=== PATIENT | female | born 1970 | race Caucasian/White ===

== ENCOUNTER 2018-09-11 06:42 | Emergency (ER) | payer OTHER ==
[2018-09-11] MEDS ORDERED: ONDANSETRON HCL INJ/PF 4 MG/2 ML SDV IV ONE (08:30)
[2018-09-11] MEDS ORDERED: NORMAL SALINE 1000 ML 1,000 ML IV ONE (08:30)
--- NOTE | 2018-09-11 08:31 | ER Document Report ---
ED General - General Chief Complaint: Vomiting/Diarrhea Stated Complaint: DIARRHEA Time Seen by Provider: 09/11/18 07:33 Notes: Patient is a 48-year-old female who presents to the emergency department with a chief complaint of nausea, vomiting, and diarrhea. She states that her symptoms started 3 weeks ago. Her symptoms have been on and off. She states that she has been to her parents house and has had the symptoms every time she leaves. She does not have any pain, but admits to some cramping in her mid abdomen along her umbilicus. She denies any fever. She has a history of a cholecystectomy. Her past medical history includes hypertension and hypothyroidism. TRAVEL OUTSIDE OF THE [place] IN LAST 30 DAYS: No Past Medical History - Social History Smoking Status: Never Smoker Family History: Reviewed & Not Pertinent Patient has suicidal ideation: No Patient has homicidal ideation: No - Past Medical History Cardiac Medical History: Reports: Hx Hypercholesterolemia, Hx Hypertension Renal/ Medical History: Denies: Hx Peritoneal Dialysis Review of Systems - Review of Systems Notes: REVIEW OF SYSTEMS: CONSTITUTIONAL : Denies recent illness. Denies recent unintentional weight loss. Denies fever, chills, or sweats. EENT: Denies eye, ear, throat, or mouth pain, discharge, or symptoms. Denies nasal or sinus congestion. CARDIOVASCULAR: See HPI RESPIRATORY: Denies shortness of breath, cough, congestion, difficulty breathi ng, or wheezing. GASTROINTESTINAL: See HPI GENITOURINARY: Denies difficulty urinating, burning, blood in urine, urgency or frequency. MUSCULOSKELETAL: Denies neck and back pain. Denies joint pain or swelling. SKIN: Denies rash, itchiness, or lesions HEMATOLOGIC : Denies easy bruising or bleeding. LYMPHATIC: Denies swollen, painful, enlarged glands. NEUROLOGICAL: Denies no numbness or tingling denies weakness. Denies headache. Denies altered mental status. Denies alteration in speech. PSYCHIATRIC: Denies stress, anxiety, alteration in sleep patterns, or depression. All other systems reviewed and negative. Physical Exam - Vital signs Vitals: Temp Pulse Resp BP Pulse Ox 97.4 F 78 16 116/76 96 09/11/18 07:01 09/11/18 07:01 09/11/18 07:01 09/11/18 07:01 09/11/18 07:01 - Notes Notes: PHYSICAL EXAMINATION: GENERAL: Appears well, healthy, well-nourished, no acute distress. HEAD: Normocephalic, atraumatic. EYES: PERRL, conjunctiva normal, all extraocular movements intact, sclera nonicteric ENT: Moist mucous membranes. NECK: Supple, no noticeable swelling, redness, rash. Normal range of motion. LUNGS: Equal breath sounds bilaterally and clear to auscultation. No wheezes rales or rhonchi. CARDIOVASCULAR: S1-S2, regular rate, regular rhythm. Radial pulses 2+, normal. ABDOMEN: Normoactive bowel sounds. Soft, tender mid abdomen near umbilicus, no guarding, no rebound tenderness, and no masses palpated. EXTREMITIES: Normal strength and range of motion, no pitting or edema. No cyanosis. NEUROLOGICAL: Moves all extremities upon command. Strength 5/5 in all extremities. PSYCH: Normal mood, normal affect. SKIN: Warm, dry. No rash, lesions, ulcerations noted. Normal skin turgor. Course - Re-evaluation Re-evalutation: 09/11/18 10:36 Patient states she feels better after receiving the morphine. She has moderate leukocytes in her urine. She is complaining of abdominal pain, she will be given Keflex for her urinary tract infection. Her CBC and chemistries are unremarkable at this time. I do not suspect she has any life-threatening etiology at this time. Verbal discharge instructions were given to the patient. They verbalized understanding. They are stable for discharge. - Vital Signs Vital signs: Temp Pulse Resp BP Pulse Ox 98.1 F 78 15 148/67 H 99 09/11/18 10:58 09/11/18 07:01 09/11/18 10:04 09/11/18 10:04 09/11/18 10:04 - Laboratory Result Diagrams: 09/11/18 07:36 09/11/18 07:36 Laboratory results interpreted by me: 09/11/18 09/11/18 09/11/18 07:36 07:36 08:18 Eosinophils % 6.3 H Chloride 109 H Alkaline Phosphatase 145 H Ur Leukocyte Esterase MODERATE H - EKG Interpretation by Me Additional EKG results interpreted by me: 09/11/18 08:00 Sinus rhythm. Rate 73. WI 168; QRS 98; QT 384; QTC 424. No ST elevation or depression. Discharge - Discharge Clinical Impression: Urinary tract infection Qualifiers: Urinary tract infection type: acute cystitis Hematuria presence: without hematuria Qualified Code(s): N30.00 - Acute cystitis without hematuria Diarrhea Qualifiers: Diarrhea type: unspecified type Qualified Code(s): R19.7 - Diarrhea, unspecified Nausea and vomiting Qualifiers: Vomiting type: unspecified Vomiting Intractability: non-intractable Qualified Code(s): R11.2 - Nausea with vomiting, unspecified Condition: Stable Disposition: HOME, SELF-CARE Instructions: Cephalexin ([facility]) Additional Instructions: Your urine shows findings consistent with a urinary tract infection. Please take all the antibiotics as directed even if your symptoms have improved. Please follow-up with your primary care physician as needed. You have been given Zofran, medication for nausea. Please take this every 6 hours as needed for your nausea. Make sure you stay well-hydrated. Return to emergency room if you develop fever >101F, persistent vomiting, become lethargic, have severe pain in your sides, or any other symptoms that are concerning to you. Prescriptions: Cephalexin [Keflex] 500 mg PO BID #14 capsule
[2018-09-11 09:01] LABS: ABSOLUTE EOSINOPHILS # (AUTO) 0.5 10^3/uL (0.0-0.6); ABSOLUTE LYMPHOCYTES (AUTO) 1.4 10^3/uL (0.5-4.7); ABSOLUTE MONOCYTES (AUTO) 0.4 10^3/uL (0.1-1.4); ABSOLUTE NEUT (AUTO) 6.2 10^3/uL (1.7-8.2); BASOPHILS % (AUTO) 0.4 % (0-2); EOSINOPHILS % (AUTO) 6.3 % (0-6); HEMATOCRIT 44.7 % (36.0-47.0); LYMPHOCYTES % (AUTO) 15.7 % (13-45); MEAN CORPUSCULAR HEMOGLOBIN 31.2 pg (27.0-33.4); MEAN CORPUSCULAR HGB CONC 33.6 g/dL (32.0-36.0); MEAN CORPUSCULAR VOLUME 93 fl (80-97); MONOCYTES % (AUTO) 5.2 % (3-13); PLATELET COUNT 307 10^3/uL (150-450); RED BLOOD COUNT 4.82 10^6/uL (3.72-5.28); RED CELL DISTRIBUTION WIDTH 13.2 % (11.5-14.0); SEGMENTED NEUTROPHILS % (AUTO) 72.4 % (42-78); TOTAL CELLS COUNTED % (AUTO) 100 %; WHITE BLOOD COUNT 8.6 10^3/uL (4.0-10.5)
[2018-09-11 09:09] LABS: ALANINE AMINOTRANSFERASE 50 U/L (9-52); ALBUMIN 4.7 g/dL (3.5-5.0); ALKALINE PHOSPHATASE 145 U/L (38-126); ANION GAP 10 (5-19); ASPARTATE AMINO TRANSFERASE 35 U/L (14-36); BILIRUBIN,DIRECT 0.2 mg/dL (0.0-0.4); BILIRUBIN,TOTAL 0.5 mg/dL (0.2-1.3); BLOOD UREA NITROGEN 15 mg/dL (7-20); CALCIUM 9.7 mg/dL (8.4-10.2); CARBON DIOXIDE 22 mmol/L (22-30); CHLORIDE 109 mmol/L (98-107); GLUCOSE 101 mg/dL (75-110); LIPASE 240.1 U/L (23-300); POTASSIUM 4.4 mmol/L (3.6-5.0); SODIUM 141.2 mmol/L (137-145); TOTAL PROTEIN 7.8 g/dL (6.3-8.2)
[2018-09-11 09:39] LABS: APPEARANCE,URINE SLIGHTLY-CLOUDY; BILIRUBIN,URINE NEGATIVE (NEGATIVE); COLOR,URINE YELLOW; GLUCOSE, URINE NEGATIVE (NEGATIVE); KETONES,URINE NEGATIVE (NEGATIVE); LEUKOCYTE ESTERASE,URINE MODERATE (NEGATIVE); NITRITE,URINE NEGATIVE (NEGATIVE); PROTEIN,URINE NEGATIVE (NEGATIVE); UROBILINOGEN,URINE NEGATIVE mg/dL (<2.0)
[2018-09-11] MEDS ORDERED: MORPHINE SULFATE 10 MG/ML INJ IV ONE (09:52)
[2018-09-11 10:08] VITALS: BP 148/67
[2018-09-11] MEDS ORDERED: ONDANSETRON ODT 4 MG TAB (6 TAB/ER DISP) PO PRN (10:35)
--- NOTE | 2018-09-11 18:32 | EKG REPORT ---
SEVERITY:- ABNORMAL ECG - SINUS RHYTHM PROBABLE INFERIOR INFARCT, OLD : Confirmed by: Sergio Madison 11-Sep-2018 18:31:53
== END 2018-09-11 10:59 | disposition home or self-care (01) ==
LOC: ER 06:42
DX: N30.00 Acute cystitis without hematuria (principal); R11.2 Nausea with vomiting, unspecified; R19.7 Diarrhea, unspecified; R10.33 Periumbilical pain; Z90.49 Acquired absence of other specified parts of digestive tract; I10 Essential (primary) hypertension
CPT/HCPCS: 93005; 99284; 96361; 96374; 96375; 36415; 87086; 83690; 85025; 81025; 80053; 81001; 84484; 93010; J2270; J2405; J7030

== ENCOUNTER 2019-12-01 09:07 | Emergency (ER) | payer OTHER ==
--- NOTE | 2019-12-01 09:31 | ER Document Report ---
ED General - General Chief Complaint: Arm Pain Stated Complaint: LEFT ARM PAIN Time Seen by Provider: 12/01/19 09:30 Primary Care Provider: SHANTI FRANCO MD [Primary Care Provider] - Follow up tomorrow LAURYN GRIJALVA MD [ACTIVE PROVISIONAL STAFF] - Follow up in 3-5 days TRAVEL OUTSIDE OF THE [place] IN LAST 30 DAYS: No - HPI Notes: 49-year-old female history of hypothyroidism, hypertension, anxiety, GERD, IBS, cystitis, intermittent angina over the last several years presents to the emergency room by private car by the recommendation of her primary care provider for an abnormal EKG that was done in the office yesterday for patient stating that she has had intermittent chest pain over the last week, her primary care provider told her that her QT segment "seemed a little off" but due to her significant family history of heart disease, she was advised to go to the emergency room for further evaluation this morning when her PCP re-evaluated her ekg. States her last stress test/echocardiogram was in 2015, which she states were normal. Reports her father did have open heart surgery and a few heart attacks in the past, he is still living. mother has had angioplasty at age 37 due to blocked carotids. She reports a strong family hx of cardiac disease. Patient is a non-smoker that has been exposed to smoke secondhand as a child. Patient states that she has substernal chest pressure that comes and goes and radiates to the back of her left arm intermittently as well as having intermittent left jaw pain. Patient does not take any baby aspirin. Is not on any anticoagulants. She has been seen by her manager of corporate approximately 2 to 3 years ago when she had a similar episode of chest pain. Patient does not have any active chest pain at this time. Denies fevers, chills,palpitations, shortness of breath, dyspnea, nausea, vomiting, diarrhea, abdominal pain, hematuria,blurred vision, double vision, loss of vision, speech changes, LH, dizziness, syncope, headaches, wheezing, ST, URI, neck pain, weakness, bowel or bladder dysfunction, saddle anesthesia, numbness or tingling in bilateral upper or lower extremities equally, muscle paralysis, weakness in bilateral upper or lower extremities equally or rash. Denies IV drug use. - Related Data Allergies/Adverse Reactions: fenofibrate Allergy (Verified 12/01/19 09:23) Sulfa (Sulfonamide Antibiotics) Adverse Reaction (Verified 12/01/19 09:22) Past Medical History - General Information source: Patient - Social History Smoking Status: Never Smoker Family History: Hypertension, Thyroid Disfunction - Past Medical History Cardiac Medical History: Reports: Hx Hypercholesterolemia, Hx Hypertension Renal/ Medical History: Denies: Hx Peritoneal Dialysis Review of Systems - Review of Systems Constitutional: No symptoms reported EENT: No symptoms reported Cardiovascular: See HPI Respiratory: No symptoms reported Gastrointestinal: No symptoms reported Genitourinary: No symptoms reported Female Genitourinary: No symptoms reported Musculoskeletal: No symptoms reported Skin: No symptoms reported Hematologic/Lymphatic: No symptoms reported Neurological/Psychological: No symptoms reported Physical Exam - Vital signs Vitals: Temp Pulse Resp BP Pulse Ox 97.4 F 77 18 107/56 L 96 12/01/19 09:15 12/01/19 09:15 12/01/19 09:15 12/01/19 09:15 12/01/19 09:15 - Notes Notes: PHYSICAL EXAMINATION: reviewed vital signs by RN GENERAL: Well-appearing, well-nourished and in no acute distress. HEAD: Atraumatic, normocephalic. EYES: Pupils equal round and reactive to light, extraocular movements intact, conjunctiva are normal. ENT: Nares patent, oropharynx clear without exudates. Moist mucous membranes. NECK: Normal range of motion, supple without lymphadenopathy LUNGS: Breath sounds clear to auscultation bilaterally and equal. No wheezes rales or rhonchi. HEART: Regular rate and rhythm without murmurs ABDOMEN: Soft, nontender, nondistended abdomen. No guarding, no rebound. No masses appreciated. Female : deferred Musculoskeletal: Normal range of motion, no pitting or edema. No cyanosis. NEUROLOGICAL: Cranial nerves grossly intact. Normal speech, normal gait. Normal sensory, motor exams PSYCH: Normal mood, normal affect. SKIN: Warm, Dry, normal turgor, no rashes or lesions noted. Course - Re-evaluation Re-evalutation: 12/01/19 09:57 Afebrile vital stable no distress. Nurses notes reviewed. EKG negative for [place], no ST segment changes. CBC negative for leukocytosis or anemia, CMP negative for hepatic or renal dysfunction, no electrolyte disturbances. EKG negative for STEMI, no ST segment changes, urinalysis unremarkable. TSH was normal. 2 sets of troponins were negative and since patient has had chest pain for well over 2 weeks this is adequate and has a low heart risk, her heart score is less than Presentation of chest pain in an otherwise well appearing patient. Low clinical suspicion for ACS given clinical history, exam, EKG without ST elevations or depressions, and negative initial troponin. HEART score less than or equal to 3. PE also seems unlikely given clinical history, absence of tachycardia or dyspnea. Patient is PERC criteria negative. CXR without evidence of pneumothorax or pneumonia. No widened mediastinum. Aortic dissection also seems unlikely given history, symmetric pulses, CXR, and vitals. HEART Score: History 0 ECG 0 Age 1 Risk Factors 2 Troponin 0 Total: 3 In the heart score study, is a low score and her risk of myocardial that is 0.9 to 1.7% After performing a Medical Screening Examination, I estimate there is LOW risk for RUPTURED ESOPHAGUS, PNEUMOTHORAX, PULMONARY EMBOLISM, ACUTE CORONARY SYNDROME, OR THORACIC AORTIC DISSECTION, thus I consider the discharge disposition reasonable. I have reevaluated this patient multiple times and no significant life threatening changes are noted. The patient and I have discussed the diagnosis and risks, and we agree with discharging home with close follow- up. We also discussed returning to the Emergency Department immediately if new or worsening symptoms occur. We have discussed the symptoms which are most concerning (e.g., bloody sputum, worsening pain or shortness of breath) that necessitate immediate return. 12/01/19 17:59 - Vital Signs Vital signs: Temp Pulse Resp BP Pulse Ox 97.4 F 77 19 103/59 L 96 12/01/19 09:15 12/01/19 09:15 12/01/19 15:01 12/01/19 15:01 12/01/19 15:01 - Laboratory Result Diagrams: 12/01/19 09:58 12/01/19 09:58 Laboratory results interpreted by me: 12/01/19 12/01/19 09:58 09:58 Eos % (Auto) 8.0 H Carbon Dioxide 21 L BUN 23 H ALT 37 H Discharge - Discharge Clinical Impression: Chest pain of unknown etiology Condition: Stable Disposition: HOME, SELF-CARE Instructions: Angina Episode ([facility]), Chest Pain of Unclear Cause ([facility]), Reflux Disease (GERD) ([facility]) Additional Instructions: You were seen today for chest pain. The exact cause of your pain is unclear. However, based on your cardiac enzyme testing, chest x-ray, and EKG it does not appear that it is from an immediately life-threatening cause at this time. Although your testing here is normal is critical that you follow-up with your primary care physician for continued evaluation of this chest pain and possible stress testing. I recommended you see your physician within the next 24-48 hours to be evaluated for consideration of a stress test. Please return to emergency department immediately if you have worsening of your chest pain, shortness of breath, vomiting, become unable to exert yourself due to pain or difficulty breathing, you pass out, or have any pain that radiates into your arms, jaw, or back. Please also return if you have any additional symptoms that are concerning to you. Return immediately for any new or worsening symptoms. Follow up with primary care provider, call tomorrow to make followup appointment. Referrals: SHANTI FRANCO MD [Primary Care Provider] - Follow up tomorrow LAURYN GRIJALVA MD [ACTIVE PROVISIONAL STAFF] - Follow up in 3-5 days
[2019-12-01] MEDS ORDERED: ASPIRIN 81 MG TABLET, CHEWABLE PO ONE (09:51)
[2019-12-01 10:17] LABS: ABSOLUTE EOSINOPHILS # (AUTO) 0.4 10^3/uL (0.0-0.6); ABSOLUTE LYMPHOCYTES (AUTO) 1.1 10^3/uL (0.5-4.7); ABSOLUTE MONOCYTES (AUTO) 0.5 10^3/uL (0.1-1.4); ABSOLUTE NEUT (AUTO) 3.6 10^3/uL (1.7-8.2); BASOPHILS % (AUTO) 0.5 % (0-2); HEMATOCRIT 39.5 % (36.0-47.0); LYMPHOCYTES % (AUTO) 18.8 % (13-45); MEAN CORPUSCULAR HEMOGLOBIN 33.2 pg (27.0-33.4); MEAN CORPUSCULAR HGB CONC 35.3 g/dL (32.0-36.0); MEAN CORPUSCULAR VOLUME 94 fl (80-97); MONOCYTES % (AUTO) 8.6 % (3-13); PLATELET COUNT 275 10^3/uL (150-450); RED BLOOD COUNT 4.21 10^6/uL (3.72-5.28); RED CELL DISTRIBUTION WIDTH 13.1 % (11.5-14.0); SEGMENTED NEUTROPHILS % (AUTO) 64.1 % (42-78); TOTAL CELLS COUNTED % (AUTO) 100 %; WHITE BLOOD COUNT 5.6 10^3/uL (4.0-10.5)
--- NOTE | 2019-12-01 10:25 | RADIOLOGY REPORT (SQ) ---
EXAM DESCRIPTION: CHEST 2 VIEWS IMAGES COMPLETED DATE/TIME: 12/01/2019 10:04 am REASON FOR STUDY: chest pain COMPARISON: None. EXAM PARAMETERS: NUMBER OF VIEWS: two views TECHNIQUE: Digital Frontal and Lateral radiographic views of the chest acquired. RADIATION DOSE: NA LIMITATIONS: none FINDINGS: LUNGS AND PLEURA: No opacities, masses or pneumothorax. No pleural effusion. MEDIASTINUM AND HILAR STRUCTURES: No masses or contour abnormalities. HEART AND VASCULAR STRUCTURES: Heart normal size. No evidence for failure. BONES: No acute findings. HARDWARE: None in the chest. Clips in the upper abdomen. OTHER: No other significant finding. IMPRESSION: NO ACUTE RADIOGRAPHIC FINDING IN THE CHEST. TECHNICAL DOCUMENTATION: JOB ID: [id number] 2010 Dr[employer]- All Rights Reserved Reading location - IP/workstation name: [email or web address]
[2019-12-01 10:31] LABS: ALBUMIN 4.4 g/dL (3.5-5.0); ALKALINE PHOSPHATASE 81 U/L (38-126); ANION GAP 10 (5-19); ASPARTATE AMINO TRANSFERASE 34 U/L (14-36); BILIRUBIN,TOTAL 0.5 mg/dL (0.2-1.3); BLOOD UREA NITROGEN 23 mg/dL (7-20); CARBON DIOXIDE 21 mmol/L (22-30); CHLORIDE 106 mmol/L (98-107); CREATINE KINASE 39 U/L (30-135); GLUCOSE 98 mg/dL (75-110); POTASSIUM 4.6 mmol/L (3.6-5.0); TOTAL PROTEIN 7.8 g/dL (6.3-8.2)
[2019-12-01 10:45] LABS: CREATINE KINASE MB 0.39 ng/mL (<4.55)
[2019-12-01 10:51] LABS: TROPONIN I < 0.012 ng/mL
[2019-12-01 15:08] VITALS: BP 103/59
--- NOTE | 2019-12-01 21:24 | EKG REPORT ---
SEVERITY:- NORMAL ECG - SINUS RHYTHM : Confirmed by: Leigh Griffiths MD 01-Dec-2019 21:22:58
== END 2019-12-01 15:17 | disposition home or self-care (01) ==
LOC: ER 09:07
DX: R07.9 Chest pain, unspecified (principal); M79.602 Pain in left arm; I10 Essential (primary) hypertension; F41.9 Anxiety disorder, unspecified; K21.9 Gastro-esophageal reflux disease without esophagitis; Z82.49 Family history of ischemic heart disease and other diseases of the circulatory system; R68.84 Jaw pain
CPT/HCPCS: 36415; 71046; 80053; 82550; 82553; 84443; 84484; 85025; 93005; 93010; 99285

== ENCOUNTER → 2020-03-12 | Outpatient (CLI) | payer OTHER ==
[2020-03-12 16:49] LABS: APPEARANCE,URINE SLIGHTLY-CLOUDY; BILIRUBIN,URINE NEGATIVE (NEGATIVE); COLOR,URINE YELLOW; GLUCOSE, URINE NEGATIVE (NEGATIVE); KETONES,URINE NEGATIVE (NEGATIVE); LEUKOCYTE ESTERASE,URINE LARGE (NEGATIVE); NITRITE,URINE NEGATIVE (NEGATIVE); PROTEIN,URINE NEGATIVE (NEGATIVE); URINE SPECIFIC GRAVITY 1.019; UROBILINOGEN,URINE NEGATIVE mg/dL (<2.0)
[2020-03-13 17:10] LABS: ALBUMIN 4.6 g/dL (3.5-5.0); ALKALINE PHOSPHATASE 83 U/L (38-126); ANION GAP 7 (5-19); ASPARTATE AMINO TRANSFERASE 30 U/L (14-36); BILIRUBIN,TOTAL 0.6 mg/dL (0.2-1.3); BLOOD UREA NITROGEN 20 mg/dL (7-20); CALCIUM 10.1 mg/dL (8.4-10.2); CARBON DIOXIDE 26 mmol/L (22-30); CHLORIDE 103 mmol/L (98-107); GLUCOSE 88 mg/dL (75-110); POTASSIUM 4.7 mmol/L (3.6-5.0); TOTAL PROTEIN 8.1 g/dL (6.3-8.2); TRIGLYCERIDES 446 mg/dL (<150)
[2020-03-13 17:19] LABS: CHOLESTEROL 336.63 mg/dL (0-200)
[2020-03-13 17:21] LABS: DIRECT LDL 195 mg/dL (<100)
== END ==
LOC: OD 16:09
PROVIDERS: ATTEND Family Medicine
DX: N30.00 Acute cystitis without hematuria (principal); E78.49 Other hyperlipidemia; E03.9 Hypothyroidism, unspecified
CPT/HCPCS: 36415; 80053; 80061; 81005; 84443; 87086; 87088

== ENCOUNTER → 2020-04-23 | Outpatient (CLI) | payer OTHER | LOC: OD 15:33 | PROVIDERS: ATTEND Family Medicine | DX: E03.9 Hypothyroidism, unspecified (principal) | CPT/HCPCS: 36415; 84443 ==

== ENCOUNTER → 2020-04-25 | Outpatient (CLI) | payer OTHER ==
[2020-04-25 12:19] VITALS: BP 118/59
--- NOTE | 2020-04-25 12:19 | ER RDC ASSESSMENT REPORT ---
Intake - In the Last 14 days Have you traveled outside [place]?: No Have you been in close contact with someone CONFIRMED: No Worked in Healthcare?: No - Symptoms Subjective Fever(Martin feverish): No Chills: No Muscule Aches: No Runny Nose: Yes Sore Throat: No Cough (New or worsening chronic cough): Yes Shortness of breath: No Nausea or Vomiting: No Headache: Yes Abdominal Pain: No Diarrhea(3 or more loose stools in last 24 hours): No - Do you have any of the following Chronic lung disease: Asthma or emphysema or COPD: Yes Chronic Lung Disease Comment: Patient has a history of asthma Cystic Fibrosis: No Diabetes: No High Blood Pressure: Yes Cardiovascular Disease: Yes Chronic Kidney Disease: No Chronic Liver Disease: No Chronic blood disorder like Sickle Cell Disease: No Weak immune system due to disease or medication: No Neurologic condition that limits movement: No Developmental delay - Moderate to Severe: No Recent (within past 2 weeks) or current : No Morbid Obesity (>100 pounds over ideal weight): No Obesity Comment: Height 5 feet 3 inches weight 184 pounds. Other Comment: Patient has a history of hypothyroidism - Objective Temperature: 97.2 F Pulse Rate: 82 Respiratory Rate: 18 Blood Pressure: 118/59 O2 Sat by Pulse Oximetry: 95 Objective: Given above, testing performed: If Testing Performed: Test Specimen Type Sent to General - General Information source: Patient Notes: Patient here at [facility] for COVID testing reports has had symptoms for over a week and a half almost 2 weeks of upper respiratory symptoms sinus problems runny nose headache sinus drainage reports left earache and possible UTI. Patient denies any positive exposure to anyone known positive for COVID. Patient sees Dr. Birmingham his PCP. - Related Data Allergies/Adverse Reactions: fenofibrate Allergy (Verified 12/01/19 09:23) Sulfa (Sulfonamide Antibiotics) Adverse Reaction (Verified 12/01/19 09:22) Past Medical History - General Information source: Patient - Social History Smoking Status: Never Smoker Family History: Hypertension, Thyroid Disfunction - Past Medical History Cardiac Medical History: Reports: Hx Hypercholesterolemia, Hx Hypertension Renal/ Medical History: Denies: Hx Peritoneal Dialysis Physical Exam - General General appearance: Appears well, Alert In distress: None Notes: PHYSICAL EXAMINATION: GENERAL: Well-appearing and in no acute distress. HEAD: Atraumatic, normocephalic. EYES: sclera anicteric, conjunctiva are normal. ENT: nares patent. Moist mucous membranes. NECK: Normal range of motion, supple without lymphadenopathy LUNGS: CTAB and equal. No wheezes rales or rhonchi. Respirations even and unlabored lung sounds clear. HEART: Regular rate and rhythm without murmurs ABDOMEN: Soft, nontender, normal bowel sounds, no guarding. EXTREMITIES: No cyanosis. NEUROLOGICAL: Normal speech. PSYCH: Normal mood, normal affect. SKIN: Warm, Dry, normal turgor, Diagnostic Results Laboratory Results: Patient informed of negative rapid strep results. Pending strep culture pending cover testing results. Provided instructions regarding coverage to include: As a person under investigation for Covid 19, the [facility], division of public health advises you to adhere to the following guidance until your test results are reported to you. If your test result is positive, you will receive additional information from your provider and your local health department at that time. Remain at home until you are cleared by the health provider or public health authorities. Keep a log of visitors to your home, notify any visitors to your home of your isolation status. If you plan to move to a new address or leave the county, notify the local health department in your County. Call your doctor or seek care if you have an urgent medical need. Before seeking medical care, call ahead to get instructions from the provider before arriving at the medical office clinic or hospital. Notify them that you are being tested for the virus that causes Covid 19 so that arrangements can be made, as necessary, to prevent transmission to others in the healthcare setting. Next, notify the local health department in your county. If a medical emergency arises and you need to call 911, inform the first responders that you are being tested for the virus that causes Covid 19. Next, notify the local health department in your county. Patient Education/Counseling Counseling/Education: Patient presents with upper respiratory symptoms worrisome for possible Covid 19. Patient does not have emergency worring symptoms such as difficulty breathing, shortness of breath, chest pain, pressure, confusion or cyanosis. Patient appears suitable for discharge. Instructed to follow-up with PCP Dr. Birmingham today. To ED for persistent or worsening symptoms. Patient's vital signs are stable and patient is nontoxic in appearance. Good return precautions have been discussed with patient, patient verbalized understanding and is agreeable with discharge plan of care at this time. RDC Discharge - Discharge Condition: Stable Disposition: Home; Selfcare
== END ==
LOC: RDC 11:37
PROVIDERS: ATTEND Nurse Practitioner Family
DX: Z20.828 Contact with and (suspected) exposure to other viral communicable diseases (principal); R05 Cough; R09.89 Other specified symptoms and signs involving the circulatory and respiratory systems; R51 Headache; I10 Essential (primary) hypertension; E78.00 Pure hypercholesterolemia, unspecified; E03.9 Hypothyroidism, unspecified; H92.02 Otalgia, left ear; Z87.09 Personal history of other diseases of the respiratory system; Z88.1 Allergy status to other antibiotic agents
CPT/HCPCS: 87070; 87880; 87635; C9803; 99201; 99211

== ENCOUNTER → 2020-07-04 | Outpatient (CLI) | payer OTHER ==
--- OUTSIDE RECORDS SUMMARY | 2020-07-05 18:21 | XMS REPORT ---
:1970 Author Organization [facility] [place] [facility] [place] [address] [place] [address] Care Team Providers Name Role Phone Sameer Temple Primary Care Physician Unavailable Raymond ANDRE Attending Clinician Unavailable MD Chika Alcala Attending Clinician Unavailable MD Chika Alcala Attending Clinician Unavailable Sruthi ANDRE Attending Clinician Unavailable Allergies, Adverse Reactions, Alerts Allergy Allergy Status Severity Reaction(s) Onset Inactive Treating C omments Name Type Date Date Clinician Sulfa Sulfa Active Nausea Drugs Drugs Medications Ordered Filled Start Stop Current Ordering Indication Dosage Frequency Signature Comments Components Medication Medication Date Date Medication? Clinician (SIG) Name Name Atorvastati Yes Atorvastat n Calcium 7-23 in Calcium 40 MG Oral 00:00: 40 MG Oral Tablet 00 Tablet Quantity: 30 Refills: 0 Start : 0Active Estroven 2019-0 Yes Estroven Menopause 4-27 Menopause Relief 4 MG 00:00: Relief 4 Oral Tablet 00 MG Oral Tablet Refills: 0 Start : 0Active Melatonin 3 2020-0 Yes Melatonin MG Oral 4-27 3 MG Oral Capsule 00:00: Capsule 00 Refills: 0 Start : 0Active Metoprolol 2019-0 Yes Justin 1 Metoprolol Tartrate 50 4-27 Raymond ANDRE Tartrate MG Oral 00:00: 50 MG Oral Tablet 00 Tablet TAKE 1 TABLET Other Take 1 Tablet At 9AM The Day Before, Take 1 Tablet At 6PM The Day Before, and Take 1 Tablet 1 Hour Prior To The Exam Quantity: 3 Refills: 0 Justin Andrade MD Start : 0Active Fluticasone 2018-0 Yes Wilfred Fluticason Propionate 3-15 Sruthi ANDRE e 50 MCG/ACT 00:00: Propionate Nasal 00 50 MCG/ACT Suspension Nasal Suspension 2 sprays each nostril BID x 2 weeks, then 2 sprays each nostril QD Quantity: 2 Refills: 3 Wilfred Negro MD Start : 9Active 16 GM Bottle Azelastine Yes Wilfred Q0.5D Azelastine HCl - 0.1 % 3-15 Sruthi ANDRE HCl - 0.1 Nasal 00:00: % Nasal Solution 00 Solution USE 1 SPRAY IN EACH NOSTRIL TWICE DAILY. Quantity: 1 Refills: 3 Wilfred Negro MD Start : 9Active 30 ML Bottle EQ Saline Yes Wilfred EQ Saline Nasal Branford 3-15 Sruthi ANDRE Nasal 0.65 % 00:00: Branford 0.65 Nasal 00 % Nasal Solution Solution Flush nose at least once, preferrabl y twice daily. Quantity: 1 Refills: 2 Wilfred Negro MD Start : 9Active 44 ML Bottle Escitalopra Yes Escitalopr m Oxalate am Oxalate 10 MG Oral 10 MG Oral Tablet Tablet Refills: 0 Active Levothyroxi Yes Levothyrox ne Sodium ine Sodium 125 MCG 125 MCG Oral Tablet Oral Tablet Refills: 0 Active Lisinopril Yes Lisinopril 10 MG Oral 10 MG Oral Tablet Tablet Refills: 0 Active Metoprolol Yes Metoprolol Succinate Succinate ER 100 MG ER 100 MG Oral Tablet Oral Extended Tablet Release 24 Extended Hour Release 24 Hour Refills: 0 Active Montelukast Yes Montelukas Sodium 10 t Sodium MG Oral 10 MG Oral Tablet Tablet Refills: 0 Active Multiple Yes Multiple Vitamin Vitamin TABS TABS Refills: 0 Active Vitamin D3 Yes Vitamin D3 TABS TABS Refills: 0 Active Problems Condition Condition Condition Status Onset Resolution Last Treatin g Comments Name Details Category Date Date Treatment Clinician Date No known No known [id number] active active problems problems Chronic Chronic Problem Active rhinitis rhinitis Other Other Problem Active chronic chronic sinusitis sinusitis Nasal Nasal Problem Active septal septal deviation deviation Nasal Nasal Problem Active turbinate turbinate hypertrophy hypertrophy Allergic Allergic Problem Active rhinitis rhinitis Atypical Atypical Problem Active chest pain chest pain Palpitation Palpitation Problem Active s s 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 Assessments Condition Name Status Diagnosis Date Treating Clinici an Microscopic colitis, unspecified Active 0 Chronic rhinitis Active Nasal turbinate hypertrophy Active Nasal septal deviation Active Other chronic sinusitis Active Allergic rhinitis Active Atypical chest pain Active Essential hypertension Active Mixed hyperlipidemia Active Family history of heart disease Active Palpitations Active Essential hypertension Active Mixed hyperlipidemia Active Atherosclerosis of [place] coronary artery of Active [place] heart without angina pectoris Encounters Start End Encounter Admission Attending Care Care Encounter ID Date/Time Date/Time Type Type Clinicians Facility Department 2020-04-25 2020-04-26 Outpatient [facility] [id number] 20:46:39 09:15:54 [id number] 2020-04-25 2020-04-25 [facility] [id number] 11:00:00 11:20:00 2020-04-25 2020-04-25 [facility] [id number] 00:00:00 00:00:00 [id number] 2020-04-25 2020-04-25 [facility] [id number] 00:00:00 00:00:00 2020-04-25 2020-04-25 [facility] [id number] 00:00:00 00:00:00 2020-04-25 2020-04-25 [facility]patient [facility] [id number] 00:00:00 00:00:00 2020-04-03 2020-04-03 Appointment ANNA Andrade [facility] [id number] 15:45:00 17:45:11 ; Justin Andrade MD 2020-03-29 2020-03-29 Appointment ANNA Andrade [facility] [id number] 15:30:00 15:30:00 ; Justin Andrade MD 2020-03-26 2020-03-26 Appointment ANNA Andrade [facility] [id number] 15:45:00 08:30:19 ; Justin Andrade MD 2020-03-22 2020-03-22 Appointment ANNA Andrade [facility] [id number] 15:30:00 15:30:00 ; Justin Andrade MD 2020-03-22 2020-03-22 Appointment [facility] [id number] 13:20:00 13:20:00 ; [place] farr, Clinical WB 2020-02-01 2020-02-01 Appointment [facility] [id number] 16:00:00 16:00:00 ; [place] Brownsun chika, Clinical WB 2020-01-30 2020-01-30 Appointment Raymond [facility] [id number] 15:45:00 15:45:00 ; Justin Andrade MD 2020-01-09 2020-01-09 Appointment [facility] [id number] 14:00:00 14:00:00 ; RANDALL ADAIRVIRGIEGEOGRE CAM, ROOM 2019-12-23 2019-12-23 Appointment [facility] [id number] 15:00:00 15:00:00 ; [place] farr, Echo 2019-12-22 2019-12-22 Appointment [facility] [id number] 15:00:00 15:00:00 ; [place] farr, Echo 2019-12-19 2019-12-19 Appointment Raymond [facility] [id number] 10:00:00 10:00:00 ; Justin Andrade MD 2019-07-20 2019-07-20 O Frederick Chen [facility] [id number] 13:02:46 23:59:59 Frederick Alcala 2018-12-22 2018-12-22 Appointment Sruthi [facility] [id number] 15:15:00 15:15:00 ; Wilfred Negro MD 2018-11-05 2018-11-05 Appointment Sruthi [facility] [id number] 14:00:00 14:00:00 ; Wilfred Negro MD Family History Family Member Diagnosis Comments Start Date Stop Date Mother Family history of hyperlipidemia Mother Family history of hypertension Mother Family history of diabetes mellitus Mother Family history of kidney disease Mother Family history of heart disease Father Family history of allergic rhinitis Father Family history of hyperlipidemia Father Family history of hypertension Father Family history of heart disease Sister Family history of allergic rhinitis Sister Family history of hyperlipidemia Sister Family history of hypertension Sister Family history of diabetes mellitus Sister Family history of Mental illness in member of household Sister Family history of heart disease Immunizations Ordered Immunization Filled Immunization Date Status Commen ts Refusal Reason Name Name Influenza, seasonal, Unknown Completed injectable Pneumovax 23 25 Unknown Completed never MCG/0.5ML Injection Injectable Payers Payer Name Policy Type Policy Number Effective Date Expiration D ate [employer] CHO[employer] POS [id number] 2018 00:00:0 0 II Plan of Treatment Planned Activity Planned Date Details Comments Future Scheduled Test [code = ] Future Scheduled Test [code = ] Future Scheduled Test [code = ] Social History Smoking Status Start Date Stop Date Never smoked tobacco (finding) Vital Signs Vital Name Observation Time Observation Value Comments Systolic blood pressure 2020-04-03 15:48:00 108 mm[Hg] Loca tion: LUE; Position: Sittin g Diastolic blood pressure 2020-04-03 15:48:00 70 mm[Hg] Loc ation: LUE; Position: Sittin g Weight 2020-04-03 15:48:00 184 [lb_av] Body mass index (BMI) 2020-04-03 15:48:00 32.59 kg/m2 [Ratio] Heart Rate 2020-04-03 15:48:00 95 /min O2 SAT 2020-04-03 15:48:00 97 % Hospital Discharge Instructions NameDatesDetailsInstructions not documentedNameDatesDetailsInstructions not documentedNameDatesDetailsInstructions not documented NameDatesDetailsInstructions not documented
== END ==
LOC: HHS 09:19
DX: Z12.83 Encounter for screening for malignant neoplasm of skin (principal); D22.9 Melanocytic nevi, unspecified